=== PATIENT | female | born 1955 | race Caucasian/White ===

== ENCOUNTER 2017-06-12 11:57 | Day surgery (SDC) | payer BC ==
[~2017-06-12 11:57] MED LIST: Lactated Ringers 1,000 ML IV SCH; Sodium Chloride 0.9% 10 ML Syringe FLUSH PRN; Sodium Chloride 0.9% 2.5 ML Syringe FLUSH PRN
--- NOTE | 2017-06-12 12:49 | PCM.PREANE ---
Preanesthetic Assessment - Anesthesia/Transfusion/Family Hx Anesthesia History: Prior Anesthesia Without Reaction Transfusion History: No Prior Transfusion(s) - Review of Systems General: No Symptoms Pulmonary: No Symptoms Cardiovascular: No Symptoms Gastrointestinal: No Symptoms Neurological: No Symptoms Other: Reports: None - Physical Assessment NPO Status Date: 06/11/17 NPO Status Time: 21:00 O2 Sat by Pulse Oximetry: 96 Respiratory Rate: 16 Vital Signs: Last Vital Signs Temp 36.2 C 06/12/17 12:20 Pulse 82 06/12/17 12:20 Resp 16 06/12/17 12:20 BP 149/87 H 06/12/17 12:20 Pulse Ox 96 06/12/17 12:20 Height: 1.6 m Weight: 66.224 kg ASA Class: 2 Mental Status: Alert & Oriented x3 Airway Class: Mallampati = 2 Dentition: Reports: [place](s) (central maxilary) ROM/Head Extension: Full Lungs: Clear to Auscultation, Normal Respiratory Effort Cardiovascular: Regular Rate, Regular Rhythm - Allergies Allergies/Adverse Reactions: Allergies Allergy/AdvReac Type Severity Reaction Status Date / Time bee venom protein (honey bee) Allergy Swelling Verified 06/10/17 11:16 codeine Allergy Rash Verified 06/10/17 11:16 diphenhydramine HCl Allergy Rash Verified 06/10/17 11:16 [From Benadryl] Sulfa (Sulfonamide Allergy Rash Verified 06/10/17 11:16 Antibiotics) - Anesthesia Plan Pre-Op Medication Ordered: None - Acknowledgements Anesthesia Type Planned: MAC Pt an Appropriate Candidate for the Planned Anesthesia: Yes Alternatives and Risks of Anesthesia Discussed w Pt/Guardian: Yes Pt/Guardian Understands and Agrees with Anesthesia Plan: Yes PreAnesthesia Questionnaire Other HEENT History: wears glasses Cardiovascular History: Reports: Other (See Below) Other Cardiovascular History: has Mitral Valve Prolapse Respiratory History: Reports: Other (See Below) Other Respiratory History: hx of post traumatic lung failure, 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% Musculoskeletal History: Reports: Arthritis, Back Pain, Chronic, Fracture Other Musculoskeletal History: hx of fx pelvis, 8 ribs, clavicle - Past Surgical History Respiratory Surgical History: Reports: Tracheostomy Other Respiratory Surgeries/Procedures: removed GI Surgical History: Reports: Colonoscopy, Other (See Below) Other GI Surgeries/Procedures: hx of gastrostomy tube insertion (removed) Musculoskeletal Surgical History: Reports: None - SUBSTANCE USE Smoking Status *Q: Never Smoker Recreational Drug Use History: No - HOME MEDS Home Medications: Home Meds Cholecalciferol (Vitamin D3) [Vitamin D3] 1,000 unit PO DAILY 06/10/17 [History] EPINEPHrine [Epipen 2-Juvenal] 1 dose IM ASDIRECTED PRN 06/10/17 [History] Magnesium 250 mg PO DAILY 06/10/17 [History] [place]-3 Fatty Acids [[place]-3] 1 cap PO BID 06/10/17 [History] Vitamin B Complex [B Complex] 1 tab PO DAILY 06/10/17 [History] - CURRENT (IN HOUSE) MEDS Current Meds: Current Medications Lactated Ringer's (Ringers, Lactated) 1,000 mls @ 125 mls/hr IV ASDIRECTED JEFFREY Last Admin: 06/12/17 12:24 Dose: 125 mls/hr Sodium Chloride (Saline Flush) 10 ml FLUSH ASDIRECTED PRN PRN Reason: Keep Vein Open Sodium Chloride (Saline Flush) 2.5 ml FLUSH ASDIRECTED PRN PRN Reason: Keep Vein Open Sodium Chloride (Saline Flush) 10 ml FLUSH ASDIRECTED PRN PRN Reason: Keep Vein Open Sodium Chloride (Saline Flush) 2.5 ml FLUSH ASDIRECTED PRN PRN Reason: Keep Vein Open
[2017-06-12] MEDS ORDERED: fentaNYL 100 MCG/2 ML SDV ONE (13:25)
[2017-06-12] MEDS ORDERED: Midazolam 1 MG/ML 2 ML SDV ONE (13:25)
[2017-06-12] MEDS ORDERED: Lidocaine 2% 5 ML SDV ONE (13:25)
[2017-06-12] MEDS ORDERED: Propofol 200 MG/20 ML SDV ONE ×2 (13:25→14:35)
--- NOTE | 2017-06-12 15:05 | PCM.OPNOTE ---
- General Post-Op/Procedure Note Date of Surgery/Procedure: 06/12/17 Operative Procedure(s): Colonoscopy Findings: Cecal mass. Anal canal lesion most likely hemorrhoid Pre Op Diagnosis: Screening colonoscopy Post-Op Diagnosis: Cecal mass, anal canal lesion Anest[place] [facility] [place]geon: Madonna Vasquez Condition: Good
--- NOTE | 2017-06-12 15:21 | PCM.POSTAN ---
POST ANESTHESIA ASSESSMENT - MENTAL STATUS Mental Status: Alert, Oriented - RESPIRATORY Respiratory Status: Respiratory Rate WNL, Airway Patent, O2 Saturation Stable - CARDIOVASCULAR CV Status: Pulse Rate WNL, Blood Pressure Stable - GASTROINTESTINAL GI Status: No Symptoms - POST OP HYDRATION Hydration Status: Adequate & Stable
--- NOTE | 2017-06-12 16:37 | PCM48HPAN ---
Post Anesthesia Note - EVALUATION WITHIN 48HRS OF ANESTHETIC Vital Signs in Normal Range: Yes Patient Participated in Evaluation: Yes Respiratory Function Stable: Yes Airway Patent: Yes Cardiovascular Function Stable: Yes Hydration Status Stable: Yes Pain Control Satisfactory: Yes Nausea and Vomiting Control Satisfactory: Yes Mental Status Recovered: Yes
[2017-06-12 16:39] VITALS: BP 110/65
--- NOTE | 2017-06-12 23:06 | OR ---
SURGEON: MADONNA VASQUEZ MD DATE OF PROCEDURE: 06/12/2017 PREOPERATIVE DIAGNOSIS: Screening colonoscopy. POSTOPERATIVE DIAGNOSIS: Cecal mass, rectal lesion, most likely hemorrhoid. PROCEDURE PERFORMED: Screening colonoscopy. ENDOSCOPIST: Madonna Vasquez MD. INSTRUMENT USED: Olympus colonoscope. EXTENT OF EXAM: To the cecum. PREPARATION: Good. LIMITATIONS: None. INDICATION FOR EXAMINATION: The patient is a 62-year-old female, who presents for a 10 year followup colonoscopy. Her last colonoscopy was normal. We discussed the procedure, expected perioperative course, and risks including bleeding, infection, or perforation. The patient verbalized understanding and wishes to proceed. PROCEDURE IN DETAIL: The patient was brought into the endoscopy suite and placed in the left lateral decubitus position. A time-out was completed verifying the patient's name, age, date of , allergies, and procedure to be performed. Monitored anesthesia care was induced and continuous oxygen was provided via nasal cannula throughout the procedure. After adequate sedation was achieved, a digital rectal exam was performed and digital rectal exam was within normal limits. A well lubricated colonoscope was inserted into the rectum and advanced under direct visualization to the level of cecum. The cecum was identified by both visual and anatomic landmarks. A photograph was taken of the cecal cap. The patient was noted to have a sessile colon polyp within the cecal cap. I attempted to remove this using a hot biopsy snare. I was unable to safely loop around the entire mass to resect it without risking perforation. I attempted to take it in piecemeal fashion, but it was too large to do so. A large piece of mass was removed using the hot snare and sent to pathology. The lesion was not bleeding at the end of these biopsies. Multiple photographs were taken of the mass. The scope was then fully withdrawn while examining the color, texture, anatomy, and integrity of the mucosa from the cecum to the anal canal. The remainder of the colonic mucosa appeared normal. The scope was brought into the rectum and retroflexed to allow visualization of the anal canal opening. The patient appeared to have an enlarged hemorrhoid and a photograph was taken. The scope was then removed from the patient. I performed my digital rectal exam again and could feel the hypertrophied tissue within the anal canal. No biopsies were taken of this area. The cecum to anus time was greater than 30 minutes. The patient tolerated the procedure well and was taken to the PACU in stable condition. ENDOSCOPIC DIAGNOSES: 1. Cecal polyp. 2. Distal rectal lesion, most likely enlarged hemorrhoidal tissue. RECOMMENDATIONS: The patient will be referred to a colorectal surgeon. After the case I showed her the pictures from the case and explained the need for followup. We will make the referral and have her seen shortly. LUCA GUTHRIE /[id number] CRUZ
== END 2017-06-12 16:20 | disposition home or self-care (01) ==
LOC: MW.SDS 11:57
PROVIDERS: ATTEND Surgery
DX: Z12.11 Encounter for screening for malignant neoplasm of colon (principal); K63.5 Polyp of colon; K64.9 Unspecified hemorrhoids; K62.89 Other specified diseases of anus and rectum; M19.90 Unspecified osteoarthritis, unspecified site; G43.909 Migraine, unspecified, not intractable, without status migrainosus; Z80.0 Family history of malignant neoplasm of digestive organs; Z88.8 Allergy status to other drugs, medicaments and biological substances; Z88.5 Allergy status to narcotic agent; Z88.2 Allergy status to sulfonamides; Z90.49 Acquired absence of other specified parts of digestive tract; Z98.890 Other specified postprocedural states; Z79.899 Other long term (current) drug therapy; Z91.030 Bee allergy status
CPT/HCPCS: 45385; 88305; J2250; J3010; J7120; J2704

== ENCOUNTER 2018-09-08 07:51 | Emergency (ER) | payer BC ==
[2018-09-08] MEDS ORDERED: Albuterol/Ipratropium 3.0-0.5 MG/3 ML Neb Soln NEB ONE (08:10)
--- NOTE | 2018-09-08 08:14 | EDM.PDOC ---
ED HPI GENERAL MEDICAL PROBLEM - General Chief Complaint: Respiratory Problem Stated Complaint: COUGHING Time Seen by Provider: 09/08/18 08:11 - History of Present Illness INITIAL COMMENTS - FREE TEXT/NARRATIVE: HISTORY AND PHYSICAL: History of present illness: Patient's a 63-year-old white female with remote history of traumatic lung injury who presents with a concern of cough that is dry but has now become productive of phlegm over the last several days she's had some upper back pain with this coughing. Denies chest pain fever chills nausea vomiting or other complaints Review of systems: As per history of present illness and below otherwise all systems reviewed and negative. Past medical history: As per history of present illness and as reviewed below otherwise noncontributory. Surgical history: As per history of present illness and as reviewed below otherwise noncontributory. Social history: No reported history of drug or alcohol abuse. Family history: As per history of present illness and as reviewed below otherwise noncontributory. Physical exam: HEENT: Atraumatic, normocephalic, pupils reactive, negative for conjunctival pallor or scleral icterus, mucous membranes moist, throat clear, neck supple, nontender, trachea midline. Lungs: Clear to auscultation, breath sounds equal bilaterally, chest nontender. Heart: S1S2, regular, negative for clicks, rubs, or JVD. Abdomen: Soft, nondistended, nontender. Negative for masses or hepatosplenomegaly. Negative for costovertebral tenderness. Pelvis: Stable nontender. Genitourinary: Deferred. Rectal: Deferred. Extremities: Atraumatic, negative for cords or calf pain. Neurovascular unremarkable. Neuro: Awake, alert, oriented. Cranial nerves II through XII unremarkable. Cerebellum unremarkable. Motor and sensory unremarkable throughout. Exam nonfocal. Diagnostics: Chest x-ray influenza screen Therapeutics: Albuterol ipratropium nebulizer Impression: #1 tracheobronchitis #2 history of remote traumatic lung injury Definitive disposition and diagnosis as appropriate pending reevaluation and review of above. Bilateral Thoracic Pain Score (Numeric/FACES): 5 - Related Data Allergies Allergy/AdvReac Type Severity Reaction Status Date / Time bee venom protein (honey bee) Allergy Swelling Verified 09/08/18 08:01 codeine Allergy Rash Verified 09/08/18 08:01 diphenhydramine HCl Allergy Rash Verified 09/08/18 08:01 [From Benadryl] Sulfa (Sulfonamide Allergy Rash Verified 09/08/18 08:01 Antibiotics) Home Meds: Home Meds EPINEPHrine [Epipen 2-Juvenal] 1 dose IM ASDIRECTED PRN 06/10/17 [History] Past Medical History Other HEENT History: wears glasses Cardiovascular History: Reports: Other (See Below) Other Cardiovascular History: has Mitral Valve Prolapse Respiratory History: Reports: Other (See Below) Other Respiratory History: hx of post traumatic lung failure, 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% Musculoskeletal History: Reports: Arthritis, Back Pain, Chronic, Fracture Other Musculoskeletal History: hx of fx pelvis, 8 ribs, clavicle - Infectious Disease History Infectious Disease History: Reports: Chicken Pox, Measles, Mumps, Shingles - Past Surgical History Respiratory Surgical History: Reports: Tracheostomy Other Respiratory Surgeries/Procedures: removed GI Surgical History: Reports: Colonoscopy, Other (See Below) Other GI Surgeries/Procedures: hx of gastrostomy tube insertion (removed) Musculoskeletal Surgical History: Reports: None Social & Family History - Family History Family Medical History: Noncontributory - Tobacco Use Smoking Status *Q: Never Smoker - Recreational Drug Use Recreational Drug Use: No ED ROS GENERAL - Review of Systems Review Of Systems: ROS reveals no pertinent complaints other than HPI. ED EXAM, GENERAL - Physical Exam Exam: See Below (See dictation) Course - Vital Signs Last Recorded V/S: Last Vital Signs Temp 36.9 C 09/08/18 07:59 Pulse 101 H 09/08/18 07:59 Resp 18 09/08/18 07:59 BP 133/82 09/08/18 07:59 Pulse Ox 95 09/08/18 07:59 - Orders/Labs/Meds Orders: Active Orders 24 hr Category Date Time Status RT Aerosol Therapy [RC] ASDIRECTED Care 09/08/18 08:10 Active Meds: Medications Discontinued Medications Generic Name Dose Route Start Last Admin Trade Name Freq PRN Reason Stop Dose Admin Albuterol/Ipratropium 3 ml 09/08/18 08:10 09/08/18 08:15 Duoneb 3.0-0.5 Mg/3 Ml NEB 09/08/18 08:11 3 ml ONETIME ONE Administration Departure - Departure Time of Disposition: 09:07 Disposition: Home, Self-Care 01 Condition: Good Clinical Impression: Pneumonia - Discharge Information Instructions: Community-Acquired Pneumonia, Adult, [id number] Referrals: PCP,None [Primary Care Provider] - Forms: ED Department Discharge Additional Instructions: The following information is given to patients seen in the emergency department who are being discharged to home. This information is to outline your options for follow-up care. We provide all patients seen in our emergency department with a follow-up referral. The need for follow-up, as well as the timing and circumstances, are variable depending upon the specifics of your emergency department visit. If you don't have a primary care physician on staff, we will provide you with a referral. We always advise you to contact your personal physician following an emergency department visit to inform them of the circumstance of the visit and for follow-up with them and/or the need for any referrals to a consulting specialist. The emergency department will also refer you to a specialist when appropriate. This referral assures that you have the opportunity for followup care with a specialist. All of these measure are taken in an effort to provide you with optimal care, which includes your followup. Under all circumstances we always encourage you to contact your private physician who remains a resource for coordinating your care. When calling for followup care, please make the office aware that this follow-up is from your recent emergency room visit. If for any reason you are refused follow-up, please contact the [facility] emergency department at and asked to speak to the emergency department charge nurse. Levaquin as prescribed follow-up primary care for reevaluation as discussed and return as needed as discussed - My Orders Last 24 Hours: My Active Orders 09/08/18 08:10 RT Aerosol Therapy [RC] ASDIRECTED - Assessment/Plan Last 24 Hours: My Active Orders 09/08/18 08:10 RT Aerosol Therapy [RC] ASDIRECTED
--- NOTE | 2018-09-08 08:55 | CR ---
EXAMINATION: Two-view chest (PA and Lateral views). HISTORY: Shortness of breath. FINDINGS: The trachea is midline. The cardiomediastinal silhouette is within normal limits. Right basilar consolidation. No pleural effusion or pneumothorax. Osseous structures appear unremarkable. IMPRESSION: Right basilar consolidation, most likely pneumonia. Follow-up following treatment may be beneficial to ensure resolution.
[2018-09-08 09:20] VITALS: BP 133/80
== END 2018-09-08 09:16 | disposition home or self-care (01) ==
LOC: MW.ED 07:51
DX: J18.9 Pneumonia, unspecified organism (principal); J40 Bronchitis, not specified as acute or chronic; Z91.030 Bee allergy status; Z88.8 Allergy status to other drugs, medicaments and biological substances
CPT/HCPCS: 71046; 71046-26; 87804; 94640; 99284-25; J7620-GY

== ENCOUNTER 2022-05-18 23:18 | Emergency (ER) | payer BC ==
[2022-05-19] MEDS ORDERED: Morphine 4 MG/ML Syringe IM ONE (01:06)
[2022-05-19] MEDS ORDERED: Ondansetron 4 MG Tab.DIS PO ONE (01:06)
[2022-05-19] MEDS ORDERED: traMADol 50 MG Tab PO ONE (01:07)
[2022-05-19] MEDS ORDERED: Ibuprofen 600 MG Tab PO ONE (01:07)
[2022-05-19] MEDS: Ondansetron 4 MG/2 ML SDV IVPUSH PRN ×2 (03:11→07:37)
[2022-05-19] MEDS ORDERED: Morphine 4 MG/ML Syringe IVPUSH ONE ×2 (03:24→06:28)
[2022-05-19 03:46] LABS: CORONAVIRUS COVID-19 NAA NEGATIVE (NEGATIVE); INFLUENZA A NAA NEGATIVE (NEGATIVE); INFLUENZA B NAA NEGATIVE (NEGATIVE)
[2022-05-19 03:52] LABS: CARBON DIOXIDE,CO2 27.3 mmol/L (21.0-32.0); POTASSIUM,K 4.2 mmol/L (3.5-5.1)
[2022-05-19 07:23] VITALS: BP 125/70; PULSE 85
== END 2022-05-19 07:50 ==
LOC: MW.ED 23:18
DX: S42.291A Other displaced fracture of upper end of right humerus, initial encounter for closed fracture (principal); Z91.030 Bee allergy status; Z88.5 Allergy status to narcotic agent; Z88.8 Allergy status to other drugs, medicaments and biological substances; Z88.2 Allergy status to sulfonamides; Z20.822 Contact with and (suspected) exposure to COVID-19; W18.30XA Fall on same level, unspecified, initial encounter
CPT/HCPCS: 0240U; 36415; 73030; 80053; 85025; 96372; 96374; 96375; 96376; 99283; A9270; J2270; J2405